=== PATIENT | female | born 1985 | race Caucasian/White ===

== ENCOUNTER 2018-10-07 08:20 | Emergency (ER) | payer OTHER ==
[~2018-10-07] VITALS: Ht 157.5 cm; Wt 56.7 kg
[2018-10-07 08:25] VITALS: Ht 157.5 cm; Wt 56.7 kg
--- NOTE | 2018-10-07 09:58 | PSY ---
Date/Time of Note Date/Time of Note DATE: 10/07/18 TIME: 09:55 Psychiatric Subjective Eval Consent Pt consented to telemedicine: Yes Subjective Evaluation Patient location: emergency Chief Complaint: " i feel like hurting myself " History of present illness 33 yo yo single employed college educated female, a mother of 8 yo child, self presented to ED due to active SI with a plan to OD on OTC meds. Pt is tearful. She reports a long hx depression and anxiety but never was treated for it. Her BF broke up with her. She is hopeless, helpless, despondent, poor sleep, poor appetite, low energy, shame, guilt. No psychosis. No HI. 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 [email or web address] Psychiatric Objective Eval Review of Systems: Review of Systems: Not Applicable Physical Examination: Physical Examination: Not Applicable Sleep: Insomnia Energy: Adequate Interest: Adequate Mental Status Examination: Appearance: Groomed Eye Contact: Good Psychomotor Activity: Normal Behavior: Cooperative Speech: Clear AFFECT: Depressed Mood: Depressed Though Process: Linear Thought Content: Normal Suicidal: Yes Homicidal: No On 72 hour hold: No Orientation: x4 Insight: Intact Judgement: Intact Laboratory Results Laboratory Tests Test 10/07/18 09:20 10/07/18 09:33 10/07/18 09:37 Urine Color YELLOW Urine Clarity SLIGHTLY CLOUDY Urine pH 5.0 Urine Specific [place] Pool 1.014 Urine Ketones TRACE mg/dL Urine Nitrite NEGATIVE mg/dL Urine Bilirubin NEGATIVE mg/dL Urine Urobilinogen NEGATIVE mg/dL Urine Leukocyte Esterase NEGATIVE [place]/ul Urine Microscopic RBC 4 /HPF Urine Microscopic WBC 3 /HPF Urine Squamous Epithelial Cells FEW /HPF Urine Bacteria FEW /HPF Urine Mucus MANY /HPF Urine Hemoglobin 2+ mg/dL Urine Glucose NEGATIVE mg/dL Urine Total Protein NEGATIVE mg/dl White Blood Count 8.8 10^3/ul Red Blood Count 4.15 10^6/ul Hemoglobin 13.2 g/dl Hematocrit 38.6 % Mean Corpuscular Volume 93.0 fl Mean Corpuscular Hemoglobin 31.8 pg Mean Corpuscular 34.2 g/dl Hemoglobin Concent Red Cell Distribution Width 13.2 % Platelet Count 274 10^3/UL Mean Platelet Volume 10.5 fl Immature Granulocytes % 0.300 % Neutrophils % 80.3 % Lymphocytes % 12.1 % Monocytes % 6.7 % Eosinophils % 0.1 % Basophils % 0.5 % Nucleated Red Blood Cells % 0.0 /100WBC Immature Granulocytes # 0.030 10^3/ul Neutrophils # 7.1 10^3/ul Lymphocytes # 1.1 10^3/ul Monocytes # 0.6 10^3/ul Eosinophils # 0.0 10^3/ul Basophils # 0.0 10^3/ul Nucleated Red Blood Cells # 0.0 10^3/ul POC Beta HCG, Qualitative NEGATIVE Assessment and Plan Assessment/Diagnosis Diagnosis MAJOR DEPRESSIVE DISORDER RECURRENT SEVERE W/O PSYCHOSIS Recommendation/Plan Medication Management DEFER TO INPT FOR ANXIETY: ATIVAN 1 MG PO PRN Q 6 HRS WHILE IN ED Discharge Disposition: Psychiatric inpatient Legal Status: Voluntary SHER ESCOBEDO MD Oct 07, 2018 09:58
--- NOTE | 2018-10-07 11:12 | ERD ---
ER Documentation Chief Complaint Chief Complaint " i feel like hurting myself " HPI This is a 33-year-old female with a past medical history of anxiety and depression with previous suicide attempts who is presenting with concerns of depression and suicidal ideations with a plan to overdose on [id number] medications such as NyQuil. The patient reports being in an unhealthy relationship. She feels helpless. She has difficulty sleeping. She has very low interest in things that she usually likes to do. She feels guilty, saying that she is a burden to everyone. She has a very low energy level. She is unable to concentrate on anything. She has a poor appetite. She does not endorse psychomotor agitation or depression. She does not endorse auditory or visual hallucinations. She does not endorse homicidal ideations. She does admit to having 3 drinks of alcohol last night. She is not consumed anything today. The patient denies feeling sick recently. The patient denies fever or chills. The patient has had no headache or vision changes. The patient does not endorse neck or back pain. The patient denies lightheadedness or dizziness. The patient has had no chest pain or trouble breathing. The patient denies nausea or vomiting. The patient denies abdominal pain. The patient denies changes to bowel movements or urination. The patient has had no focal deficits. The patient has had no weakness or numbness or tingling to the face or extremities. ROS All systems reviewed and are negative except as per history of present illness. Medications Home Meds No Active Prescriptions or Reported Meds Allergies Allergies: Coded Allergies: No Known Allergy (Unverified , 10/07/18) PMhx/Soc History of Surgery: No Anesthesia Reaction: No Hx Neurological Disorder: No Hx Respiratory Disorders: No Hx Cardiac Disorders: No Hx Psychiatric Problems: Yes (depression) Hx Miscellaneous Medical Probl: No Hx Alcohol Use: No Hx Substance Use: No Hx Tobacco Use: No Smoking Status: Never smoker FmHx Family History: No diabetes Physical Exam Vitals Vital Signs Date Temp Pulse Resp B/P (MAP) Pulse Ox O2 O2 Flow FiO2 Time Delivery Rate 10/07/18 98.4 101 22 105/57 99 08:25 (73) Physical Exam Const: No acute distress Head: Atraumatic Eyes: Normal Conjunctiva ENT: Normal External Ears, Nose and Mouth. Neck: Full range of motion. No meningismus. Resp: Clear to auscultation bilaterally Cardio: Regular rate and rhythm, no murmurs Abd: Soft, non tender, non distended. Normal bowel sounds Skin: No petechiae or rashes Back: No midline or flank tenderness Ext: No cyanosis, or edema Neur: Awake and alert Psych: Depressed affect, suicidal ideation with plan. No homicidal ideations. Please see HPI for further detail. Result Diagram: 10/07/1893210/[id number]/18932 Results 24 hrs Laboratory Tests Test 10/07/18 09:20 10/07/18 09:33 10/07/18 09:37 Urine Color YELLOW Urine Clarity SLIGHTLY CLOUDY Urine pH 5.0 Urine Specific [place] 1.014 Urine Ketones TRACE mg/dL Urine Nitrite NEGATIVE mg/dL Urine Bilirubin NEGATIVE mg/dL Urine Urobilinogen NEGATIVE mg/dL Urine Leukocyte Esterase NEGATIVE [place]aly[place]/ul Urine Microscopic RBC 4 /HPF Urine Microscopic WBC 3 /HPF Urine Squamous Epithelial Cells FEW /HPF Urine Bacteria FEW /HPF Urine Mucus MANY /HPF Urine Hemoglobin 2+ mg/dL Urine Glucose NEGATIVE mg/dL Urine Total Protein NEGATIVE mg/dl Urine Opiates Screen Negative Urine Barbiturates Negative Urine Amphetamines Screen Negative Urine Benzodiazepines Screen Negative Urine Cocaine Screen Negative Urine Cannabinoids Positive White Blood Count 8.8 10^3/ul Red Blood Count 4.15 10^6/ul Hemoglobin 13.2 g/dl Hematocrit 38.6 % Mean Corpuscular Volume 93.0 fl Mean Corpuscular Hemoglobin 31.8 pg Mean Corpuscular 34.2 g/dl Hemoglobin Concent Red Cell Distribution Width 13.2 % Platelet Count 274 10^3/UL Mean Platelet Volume 10.5 fl Immature Granulocytes % 0.300 % Neutrophils % 80.3 % Lymphocytes % 12.1 % Monocytes % 6.7 % Eosinophils % 0.1 % Basophils % 0.5 % Nucleated Red Blood Cells % 0.0 /100WBC Immature Granulocytes # 0.030 10^3/ul Neutrophils # 7.1 10^3/ul Lymphocytes # 1.1 10^3/ul Monocytes # 0.6 10^3/ul Eosinophils # 0.0 10^3/ul Basophils # 0.0 10^3/ul Nucleated Red Blood Cells # 0.0 10^3/ul Sodium Level 139 mmol/L Potassium Level 4.3 mmol/L Chloride Level 102 mmol/L Carbon Dioxide Level 28 mmol/L Anion Gap 9 Blood Urea Nitrogen 5 mg/dl Creatinine 0.63 mg/dl Est Glomerular Filtrat > 60 mL/min Rate mL/min Glucose Level 100 mg/dl Calcium Level 9.4 mg/dl Total Bilirubin 0.6 mg/dl Direct Bilirubin 0.00 mg/dl Indirect Bilirubin 0.6 mg/dl Aspartate Amino 21 IU/L Transf (AST/SGOT) Alanine 18 IU/L Aminotransferase (ALT/SGPT) Alkaline Phosphatase 54 IU/L Total Protein 8.0 g/dl Albumin 4.7 g/dl Globulin 3.30 g/dl Albumin/Globulin Ratio 1.42 Salicylates Level < 1.0 mg/dl Acetaminophen Level < 10.0 ug/ml Ethyl Alcohol Level < 10.0 mg/dl POC Beta HCG, Qualitative NEGATIVE Procedures/MDM MDM The patient's presentation warrants further investigation. Previous medical records, if available, were reviewed. LABS The patient's laboratory testing was obtained and reviewed. No emergent treatment was required unless described below. CBC: No E/o systemic infection or severe anemia or thrombocytopenia Chemistry: No E/o severe acidosis or alkalosis or renal failure or liver disease or diabetic ketoacidosis Urine: No E/o acute infection or hematuria Tox: No E/o alcohol abuse. E/o marijuana abuse. No E/o salicylate or acetaminophen use. TREATMENT/DISPOSITION The patient presents with symptoms very concerning for major depressive disorder with suicidal ideations and plan. The patient's workup included a medical screening examination, laboratory analysis, and diagnostic imaging such as EKG, chest x-ray or CT brain as indicated. The patient's laboratory analysis, diagnostic imaging do not suggest an acute organic pathology. At this time I believe the patient's presentation is consistent with underlying psychiatric illness and likely exacerbation of this illness and/or psychosis. I have a much lower clinical concern for delirium or acute organic pathology such as toxicologic, metabolic, ischemic, intracranial hemorrhage, infectious process. However, we must rule this out prior to relying a diagnosis of underlying psychiatric illness. The patient is medically cleared for psychiatric evaluation. I kept the patient and/or family informed of laboratory and diagnostic imaging results throughout the emergency room course. The patient did not require any physical or chemical restraint while under my care. Psychiatric consultation: Telemetry medicine psychiatry has been consulted on this case to evaluate the patient for possible acute psychiatric illness that would require inpatient hospitalization. Medication recommendations will be addressed. The psychiatrist recommends voluntary admission to an inpatient facility for further management of care. We are undergoing a bed search to transfer the patient to a psychiatric facility. The patient will be signed out to the oncoming physician at 2 PM on October 07, 2018 pending transfer to a psychiatric facility. OBSERVATION NOTE Time: 4 hours Family Hx: No Diabetes Evaluation: Multiple exams showed improving symptoms and no evidence of worsening psychosis Disclaimer: Inadvertent spelling and grammatical errors are likely due to EHR/dictation software use and do not reflect on the overall quality of patient care. Note that the electronic time recorded on this note does not necessarily reflect the actual time of the patient encounter. Departure Diagnosis: Primary Impression: Major depressive disorder without psychotic features Additional Impressions: Suicidal ideations Anxiety Condition: Serious KELSY COVARRUBIAS MD Oct 07, 2018 11:11
[2018-10-07 22:54] VITALS: BP 111/80; PULSE 70; RESP 22
== END 2018-10-07 22:55 ==
LOC: E/R 08:20
DX: F32.9 Major depressive disorder, single episode, unspecified (principal); F41.9 Anxiety disorder, unspecified
CPT/HCPCS: 36415; 80053; 80307; 81001; 81025; 85025; Z7502